=== PATIENT | male | born 1985 | race Caucasian/White ===

== ENCOUNTER 2016-08-26 03:35 | Emergency (ER) | payer OTHER ==
[~2016-08-26] VITALS: Ht 182.9 cm; Wt 156.4 kg
[~2016-08-26 03:35] MED LIST: COUMADIN10 MG PO; TEGRETOL200 MG PO; XARELTO20 MG PO
== END 2016-08-26 04:07 | disposition short-term general hospital (02) ==
LOC: ER 03:35
DX: S29.012A Strain of muscle and tendon of back wall of thorax, initial encounter (principal); X58.XXXA Exposure to other specified factors, initial encounter; Z86.718 Personal history of other venous thrombosis and embolism; Z79.01 Long term (current) use of anticoagulants